=== PATIENT | male | born 1950 | race Caucasian/White ===

== ENCOUNTER 2025-07-22 15:16 | Inpatient (IN) | payer MEDICARE, SELFPAY ==
[2025-07-22] VITALS (14 sets, daily range): BP systolic 141–155; BP diastolic 92–96; PULSE 66–148; RESP 18–42; TEMP 36.7–38.8; O2SAT 92–96; BMI 26.5; BMI 26.4
--- NOTE | 2025-07-22 16:31 | CRLHL7_ITS ---
For Patients: As a result of the Cures Act, medical imaging exams and procedure reports are released immediately into your electronic medical record. You may view this report before your referring provider. If you have questions, please contact your health care provider. Indication: Cough and fever Comparison: None available. Technique: PA and lateral views of the chest Findings: There is hyperinflation and chronic interstitial changes with extensive basilar atelectasis and parenchymal scar. There is no pneumothorax or pleural effusion. The cardiomediastinal silhouette is within normal limits. The bony thorax is grossly intact. Impression: Moderate chronic interstitial change and hyperinflation with basilar atelectasis and parenchymal scarring. Dictated by Wallace Drummond MD @ 07/22/2025 6:46:59 PM (Electronically Signed)
[2025-07-22 16:54] LABS: Lactate* 1.0 mmol/L (0.5-1.9)
[2025-07-22 17:00] LABS: Hematocrit* 41.2 % (37.0-53.0); Hemoglobin* 13.8 gm/dL (13.5-17.5); Immature Granulocytes Abs Auto 0.03 K/uL (0.00-0.30); Immature Granulocytes Pct Auto 0.3 %; Mean Corpuscular HGB Conc 34 gm/dL (32-36); Mean Corpuscular Hemoglobin 28 pg (26-34); Mean Corpuscular Volume 83 fL (80-100); RDW Coefficient of Variation % 15.3 % (11.5-15.5); Red Blood Count* 4.94 m/uL (4.30-5.90); White Blood Count* 9.46 K/uL (4.50-11.00)
[2025-07-22 17:02] LABS: Lymphocytes Absolute Auto 1.90 K/uL (0.90-2.90); Slide Review Reflex No
[2025-07-22 17:14] LABS: Chloride* 97 mmol/L (96-114); Sodium* 131 mmol/L (135-149)
[2025-07-22 17:15] LABS: Potassium* 4.3 mmol/L (3.6-5.1)
[2025-07-22 17:17] LABS: Blood Urea Nitrogen* 25 mg/dL (7-30); Creatinine* 1.3 mg/dL (0.5-1.5); Est. Creatinine Clearance* 52.29; Estimated Glomerular Filt Rate 57 ml/min
[2025-07-22 17:18] LABS: Anion Gap 14 mEq/L (7-15); Calcium* 9.0 mg/dL (8.4-10.6); Carbon Dioxide* 20 mmol/L (20-32); Glucose* 135 mg/dL (60-115)
[2025-07-22 17:35] LABS: INR 1.22 (0.91-1.10); Procalcitonin* 0.13 ng/mL (<0.50); Prothrombin Time 16.3 Seconds
--- NOTE | 2025-07-22 18:16 | ED_ITS ---
HPI - Extremity Injury (Upper) General Date Seen: 07/22/25 Chief Complaint: Extremity Pain/Injury, Upper Stated Complaint: rt arm swelling Time Seen by Provider: 07/22/25 15:59 Source: patient, family, RN notes reviewed and old records reviewed Mode of arrival: ambulatory Limitations: no limitations History of Present Illness HPI narrative: Patient is a 74-year-old gentleman presents here with a right elbow swelling pain any fever, he was seen initially in the clinic and thought to maybe have a septic shoulder and elbow common sent over here. He has no history of previous instrumentation. No history of falls or injury does have a remote history of gout in the past. Related Data Home Medications ?Medication ?Instructions ?Recorded ?Confirmed apixaban 5 mg tablet (Eliquis) 5 mg PO BID 07/22/25 atorvastatin 40 mg tablet 40 mg PO DAILY 07/22/2504/08 lamotrigine 25 mg tablet 50 mg PO BID 07/22/25 metoprolol succinate 25 mg 12.5 mg PO BID 07/22/2504/08 tablet,extended release 24 hr pantoprazole 40 mg tablet,delayed 40 mg PO DAILY 07/2207/22/25 release Allergies Allergy/AdvReac Type Severity Reaction Status Date / Time lisinopril Allergy Severe Swelling Verified 07/22/25 11:19 of Lip/Tongue/Throat [facility] Medical History (Updated 07/22/25 @ 18:46 by Dax Mondragon MD) Right elbow pain ?M25.521 - Pain in right elbow (ICD-10) Right shoulder pain ?M25.511 - Pain in right shoulder (ICD-10) Exam Narrative: Exam Narrative: On examination he does have a swollen right elbow, I do not detect any warmth with the, his right shoulder has full range of motion in internal external rotation there is no palpable effusion, and he is able to lift it up, his neck is supple full range of motion, is noted to have a fever, I oropharynx is normal, chest is good air entry bilaterally there is occasional crackles on the right than the left. Heart sounds no clicks murmurs with that there is a gallop, noted approximately 120. Abdomen is soft there is no guarding no organomegaly bowel sounds normal. Moves all extremities independently well. Ultrasound was utilized I was able to find a pocket of fluid, I did draw off approximately 3-4 mL of yellowish bloody fluid. After anesthetizing and using sterile technique on the right elbow, unfortunately I was not enough to not enough there to get cell count and Gram stain, Orthopedics came in and got a 2nd tap to fulfill this. I reviewed the x-rays from previous, although his saw was a fusion no evidence of a fracture, his chest x-ray shows no acute findings, there is chronic changes. His EKG did did show atrial flutter with a variable AV block, he has no have atrial fibrillation/flutter, and anticoagulated, I did give him fluids Zosyn and vancomycin here, I spoke to Orthopedics who will admit him to the hospital, they will splint him, Hospital Medicine following while in the hospital, and they will wash remote tomorrow in his right elbow. Const: Vital Signs, click to edit/add: Vital Signs - 24 hr 07/22/25 15:27 Temperature 101.9 F H Pulse Rate [Pulse Oximeter] 148 H Respiratory Rate 22 Blood Pressure [Le ft Upper Arm] 152/96 H Pulse Oximetry 94 Oxygen Delivery Me thod Room Air Documenting provider has reviewed patient's vital signs: yes Course Vital Signs Vital signs: Initial Vital Signs Temperature 101.9 F H 07/22/25 15:27 Temperature Source Temporal Artery Scan 07/22/25 15:27 Pulse Rate 148 H 07/22/25 15:27 Respiratory Rate 22 07/22/25 15:27 Blood Pressure 152/96 H 07/22/25 15:27 Blood Pressure Mean 114 H 07/22/25 15:27 Blood Pressure Position Sitting 07/22/25 15:27 Pulse Oximetry 94 07/22/25 15:27 Oxygen Delivery Method Room Air 07/22/25 15:27 Vital Signs Temperature 101.9 F H 07/22/25 15:27 Pulse Rate 148 H 07/22/25 15:27 Respiratory Rate 22 07/22/25 15:27 Blood Pressure 152/96 H 07/22/25 15:27 Pulse Oximetry 94 07/22/25 15:27 Oxygen Delivery Method Room Air 07/22/25 15:27 Temperature 101.9 F H 07/22/25 15:27 Pulse Rate 148 H 07/22/25 15:27 Respiratory Rate 22 07/22/25 15:27 Blood Pressure 152/96 H 07/22/25 15:27 Pulse Oximetry 94 07/22/25 15:27 Oxygen Delivery Method Room Air 07/22/25 15:27 MDM - Extremity Injury (Upper) MDM Narrative Medical decision making narrative: Infected right elbow, history of atrial flutter, with the moderate RVR, suspect this will improve with fluids, antipyretics, and treatment of his primary problem which is is likely septic joint. I spoke to Adeola Fontana, she will be admitted to the hospital. Medical Records Attestation: I reviewed the patient's medical records. Lab Data Attestation: I reviewed the patient's lab results. Labs: Lab Results 07/22/25 07/22/25 Range/Units 16:42 17:10 WBC 9.46 (4.50-11.00) K/uL RBC 4.94 (4.30-5.90) m/uL Hgb 13.8 (13.5-17.5) gm/dL Hct 41.2 (37.0-53.0) % MCV 83 (80-100) fL MCH 28 (26-34) pg MCHC 34 (32-36) gm/dL RDW Coeff of Katie 15.3 (11.5-15.5) % Plt Count 217 (140-440) K/uL Neut % (Auto) 68.5 (42.0-72.0) % Lymph % (Auto) 19.7 L (20-44) % [place] % (Auto) 11.0 (0.0-11.0) % Eos % (Auto) 0.2 (0.0-7.0) % Baso % (Auto) 0.3 (0.0-3.0) % Neut # (Auto) 6.48 (1.7-7.0) K/uL Lymph # (Auto) 1.90 (0.90-2.90) K/uL [place] # (Auto) 1.00 H (0.00-0.90) K/UL Eos # (Auto) 0.02 (0.00-0.50) K/uL Baso # (Auto) 0.03 (0.00-0.30) K/uL Abs Immat Gran (auto) 0.03 (0.00-0.30) K/uL Imm/Tot Granulo (auto) 0.3 % INR 1.22 H (0.91-1.10) APTT 37 H (23-33) Seconds Sodium 131 L (135-149) mmol/L Potassium 4.3 (3.6-5.1) mmol/L Chloride 97 (96-114) mmol/L Carbon Dioxide 20 (20-32) mmol/L Anion Gap 14 (7-15) mEq/L BUN 25 (7-30) mg/dL Creatinine 1.3 (0.5-1.5) mg/dL Estimated Creat Clear 52.29 Estimated GFR 57 ml/min Glucose 135 H (60-115) mg/dL Lactate 1.0 (0.5-1.9) mmol/L Calcium 9.0 (8.4-10.6) mg/dL C-Reactive Protein 8.4 H (0.5-1.0) mg/dL Procalcitonin 0.13 (<0.50) ng/mL SARS-CoV-2 (PCR) Negative SARS-CoV-2 (Negative) Influenza Type A (PCR) Negative PCR FLU A (Negative) Influenza Type B (PCR) Negative PCR FLU B (Negative) RSV (PCR) Negative PCR RSV (Negative) Imaging Data Chest x-ray: Attestation: I have reviewed the pertinent imaging results. My impression: No acute findings, chronic findings throughout. ECG Data Attestation: I personally reviewed and interpreted this ECG as follows: ECG interpretation date: 07/22/25 Prior ECG tracings: not available for review Interpretation: EKG shows atrial flutter with the 2-1 block. Ventricular rate is 119, QRS 70 milliseconds, QT is 286 and QTC is 402 Discharge Plan Discharge Clinical Impression: Septic joint of right elbow, Fever, Atrial flutter with rapid ventricular response, Tobacco use disorder Patient Disposition: Admitted As Inpatient Condition: Improved Activity Level: Light activity
[2025-07-22 18:19] LABS: PCR FLU A Negative PCR FLU A (Negative); PCR FLU B Negative PCR FLU B (Negative); PCR RSV Negative PCR RSV (Negative); SARS PCR* Negative SARS-CoV-2 (Negative)
[2025-07-22 18:39] LABS: Mononuclear WBC Body Fluid* 9 %; Polynuclear WBC Body Fluid* 91 %; RBC, Body Fluid* 59000 Cells/uL
[2025-07-22 18:49] LABS: BF Total Volume* 2
[2025-07-22 18:50] LABS: BF Clarity* Cloudy
[2025-07-22] MEDS: PIPERACILLIN/TAZOBACTAM 3.375 GM in 0.9 % SODIUM CHLORIDE Mini-bag 100 ML IVPB (18:58)
[2025-07-22] MEDS: ACETAMINOPHEN 500 MG TABLET 1000 MG PO (18:58)
--- NOTE | 2025-07-22 19:18 | PM.ORCN ---
History of Present Illness HPI Time Seen by Provider: 19:18 Date Seen: 07/22/25 Consult date: 07/22/25 Requesting physician: Dax Mondragon Chief complaint: rt arm swelling Narrative: Rosendo is a very pleasant 74-year-old young man, here in the emergency room today with left elbow pain and fever. He has a remote history of gout in his foot. Pain initially started in the shoulder and later in the elbow. He states it feels like gout. He takes apixaban. He has atrial flutter. Review of Systems Narrative: Patient denies nausea, vomiting, chest pain, shortness of breath. He has fever, chills. [facility] Medical History Right elbow pain ?M25.521 - Pain in right elbow (ICD-10) Right shoulder pain ?M25.511 - Pain in right shoulder (ICD-10) Meds Home Medications and Allergies Home Medications ?Medication ?Instructions ?Recorded ?Confirmed ?Type apixaban 5 mg tablet (Eliquis) 5 mg PO BID 07/22/25 07/22/25 History atorvastatin 40 mg tablet 40 mg PO DAILY 07/22/25 07/22/25 History lamotrigine 25 mg tablet 50 mg PO BID 07/22/25 07/22/25 History metoprolol succinate 25 mg 12.5 mg PO BID 07/22/25 07/22/25 History tablet,extended release 24 hr pantoprazole 40 mg tablet,delayed 40 mg PO DAILY 07/22/25 07/22/25 History release Allergies Allergy/AdvReac Type Severity Reaction Status Date / Time lisinopril Allergy Severe Swelling Verified 07/22/25 11:19 of Lip/Tongue/Throat Ortho Exam Narrative Exam Narrative: Alert and oriented x3. Patient is in no acute distress. Converses without labored breathing. Hearing is grossly intact. Examined supine on ER bed. Examination of the right elbow shows no erythema or warmth. Effusion is palpable. Range of motion of the elbow causes significant pain passively and actively. He is able to range his fingers and wrist. Capillary refill less than 2 seconds. Sensation is intact in the right upper extremity. Forward flexion of the shoulder is not painful. Const Vital Signs, click to edit/add: Vital Signs - 24 hr 07/22/25 15:27 07/22/25 16:30 07/22/25 17:45 Temperature 101.9 F H Pulse Rate 120 H Pulse Rate [Pulse Oximeter] 148 H Respiratory Rate 22 42 H Blood Pressure Blood Pressure [Left Upper Arm] 152/96 H Pulse Oximetry 94 96 94 Oxygen Delivery Method Room Air 07/22/25 18:07 07/22/25 18:15 07/22/25 18:30 Temperature Pulse Rate 124 H 127 H 133 H Pulse Rate [Pulse Oximeter] Respiratory Rate 27 H 25 H Blood Pressure Blood Pressure [Left Upper Arm] Pulse Oximetry 93 93 92 Oxygen Delivery Method 07/22/25 18:43 07/22/25 18:45 07/22/25 19:00 Temperature Pulse Rate 127 H 118 H 118 H Pulse Rate [Pulse Oximeter] Respiratory Rate 19 24 22 Blood Pressure 141/92 H Blood Pressure [Left Upper Arm] Pulse Oximetry 93 93 95 Oxygen Delivery Method Room Air Room Air Documenting provider has reviewed patient's vital signs: yes Results Labs Labs: Laboratory Results - last 48 hr 07/22/25 07/22/25 07/22/25 16:42 17:10 17:32 WBC 9.46 RBC 4.94 Hgb 13.8 Hct 41.2 MCV 83 MCH 28 MCHC 34 RDW Coeff of Katie 15.3 Plt Count 217 Neut % (Auto) 68.5 Lymph % (Auto) 19.[address] [place] % (Auto) 11.0 Eos % (Auto) 0.2 Baso % (Auto) 0.3 Neut # (Auto) 6.48 Lymph # (Auto) 1.90 [place] # (Auto) 1.00 H Eos # (Auto) 0.02 Baso # (Auto) 0.03 Abs Immat Gran (auto) 0.03 Imm/Tot Granulo (auto) 0.3 INR 1.22 H APTT 37 H Sodium 131 L Potassium 4.3 Chloride 97 Carbon Dioxide 20 Anion Gap 14 BUN 25 Creatinine 1.3 Estimated Creat Clear 52.29 Estimated GFR 57 Glucose 135 H Lactate 1.0 Calcium 9.0 C-Reactive Protein 8.4 H Procalcitonin 0.13 Fluid Volume 2 Fluid Color Blood Tinged A Fluid Appearance Cloudy A Fluid WBC 428797 Fluid RBC 77997 Fluid Polynuclear WBCs 91 Fluid Mononuclear WBCs 9 SARS-CoV-2 (PCR) Negative SARS-CoV-2 Influenza Type A (PCR) Negative PCR FLU A Influenza Type B (PCR) Negative PCR FLU B RSV (PCR) Negative PCR RSV Diagnostic results Additional Comments: X-rays taken today of the right elbow interpreted by myself show no fractures or dislocations. Degenerative changes noted. Radiologist review has not yet been performed. X-rays taken today of the right shoulder, three views show moderate to severe right shoulder osteoarthritis with calcification seen within the rotator cuff interval. Assessment and Plan Assessment and plan (1) Right elbow pain: Status: Acute Plan After verbal consent and review of risks and benefits, the right elbow joint is prepped and aspirated by Dr. Mondragon and myself. Approximately 5 mL of cloudy blood-tinged fluid is aspirated. A Band-Aid is placed. Fluid was sent to the lab for crystals, culture, Gram stain, cell count also had blood cultures taken. The operating room will be busy for several hours this evening, therefore tomorrow plan on washing out the elbow with Dr. Ha. Dr. Mustafa has spoken with Dr. Ha. Patient will remain NPO. Right arm is placed into a posterior splint for comfort. He tolerated this well. He can use his hand and fingers with in the splint. Semaj is in agreement the plan. All questions were answered. Note, dictation performed with voice recognition, and as a result, wrong word or sound like substitutions may have occurred. There may be areas in the script that have gone undetected. Please consider this when interpreting information found in the chart.
--- NOTE | 2025-07-22 19:54 | PM.IMHP1 ---
Assessment and Plan Assessment and plan (1) Sepsis: Problem comment: -meet sepsis criteria fever 101.9?, HR > 120, respiratory rate > 20, suspect septic joint -lactate 1.0, procal 0.13, CRP 8.4, no leukocytosis, added VBG pH 7.467, pCO2 31, PO2 59, HC03 22 -received 1 L NS in ED, 2nd bolus on arrival to floor, will re-evaluate for additional 500 mL bolus followed by maintenance fluids (goal 2580mL for 86 kg man) -received Zosyn and vancomycin in ED. Continue with vancomycin and switch to cefazolin 2 g q.8 -fever management, tachycardia improving - repeat EKG aflutter with av block, vent rate 71 -BC x2, aspirate cultures pending Status: Acute (2) Septic joint of right elbow: Problem comment: -right elbow x-ray shows Mildly limited evaluation. Within these limitations, no definite acute fracture or dislocation of the right elbow. There is soft tissue swelling posterior to the distal aspect of the right humerus, as well as posterior to the olecranon. There may be an elbow joint effusion versus overlying skin folds -ortho assessed patient in ED, aspiration obtained - cloudy blood-tinged fluid, cultures pending. Plan for OR washout 07/[address] Ha -management as above -NPO at midnight, IVF -last dose apixaban 07/22 am - HOLD. SCDs for VTE PPX Status: Acute (3) Hyponatremia: Problem comment: -sodium 131, previous 136 -receiving NS per sepsis protocol, monitor Status: Acute (4) Atrial flutter with rapid ventricular response: Problem comment: -history of atrial flutter on metoprolol and apixiban - took both this am 07/22 -1st EKG showing atrial flutter with variable AV block, ventricular rate 119 -heart rate improving with sepsis IVF -repeat EKG shows aflutter, rate 71, give evening dose home metoprolol Status: Acute (5) COPD (chronic obstructive pulmonary disease): Problem comment: -active tobacco use, weekly, not daily -perioperative pulmonary hygiene encouraged, incentive spirometry Status: Acute (6) GERD (gastroesophageal reflux disease): Problem comment: -pantoprazole 40 mg daily Status: Acute (7) Bipolar 1 disorder: Problem comment: -per EMR, stable Status: Acute (8) Essential (primary) hypertension: Problem comment: -continue metoprolol 12.5 mg b.i.d. Status: Acute (9) Stage 3 chronic kidney disease: Problem comment: -CKD stage IIIA -creatinine 1.3, stable, previous 1.3, Status: Acute (10) Hyperlipidemia: Problem comment: -continue atorvastatin 40 mg Status: Acute (11) Right shoulder pain: Problem comment: -onset 1 week ago, decreased range of motion. No injury/trauma. Shoulder x-ray shows moderate-severe right shoulder OA -pain management/symptomatic cares -outpatient follow-up Status: Acute Plan To OR 07/23 for washout right elbow with Dr. Ha Total Time Spent Total Time Spent: Today I spent 75 minutes seeing the patient, reviewing Expanse and EPIC notes/diagnostics, discussing the care plan with our care time that includes social work, PT/OT, pharmacy, RT, residential and documenting my impressions and plan in the medical record. Hospitalist- H&P: HPI History of Present Illness Date Seen: 07/22/25 Chief complaint: rt arm swelling Narrative: Rosendo Shafer is a 74 year old male past medical history significant for atrial flutter on beta-lisa and chronic anticoagulation, hypertension, hyperlipidemia, bipolar 1 disorder, COPD, active tobacco use, GERD is admitted to the medical floor from the ED for further management septic joint. Patient is seen sitting up in bed. Reports initially, onset right shoulder pain approximately 1 week ago. He tells me it froze up secondary to the pain. Denies any trauma or injury nor any overuse type injury prior to onset. No falls. Three days ago right elbow began hurting with inflammation and swelling. Again no trauma or injury known. [place] feverish today. Mild headache. No dizziness. Denies any recent chest pain or shortness of breath. Denies abdominal pain, nausea, vomiting, diarrhea. Last normal BM was yesterday. Denies any UTI symptoms. Orthopedic surgery team saw patient in ED, aspirating cloudy blood-tinged fluid. Plan for OR for washout with Dr. Ha on 07/23/2025. Patient reports living in an , traveling across the [place] for the past 6 years. Recently moved into an apartment with his in [place]. PCP is [facility] in [place]- sees her every 6 months. Continues to smoke on a weekly, not daily basis. No alcohol use. Denies history of anesthesia complications with previous surgeries. Last was November 2023. No known bleeding disorders. No history of strokes or heart attacks. CXR shows moderate chronic interstitial change and hyperinflation with basilar atelectasis and parenchymal scarring. Repeat labs in a.m.. Sodium 131, has received NS IVF so expect this to be same or better. Okay for planned procedure. Review of Systems Narrative: REVIEW OF SYSTEMS: Complete review of systems performed and negative unless otherwise stated in HPI or below. Medical Decision Making Medical Decision Making Code Status: DNI only [facility] Medical History Hyperlipidemia ?E78.5 - Hyperlipidemia, unspecified (ICD-10) Right elbow pain ?M25.521 - Pain in right elbow (ICD-10) Right shoulder pain ?M25.511 - Pain in right shoulder (ICD-10) Meds Home Medications and Allergies Home Medications ?Medication ?Instructions ?Recorded ?Confirmed ?Type apixaban 5 mg tablet (Eliquis) 5 mg PO BID 07/22/25 07/22/25 History atorvastatin 40 mg tablet 40 mg PO DAILY 07/22/25 07/22/25 History lamotrigine 25 mg tablet 50 mg PO BID 07/22/25 07/22/25 History metoprolol succinate 25 mg 12.5 mg PO BID 07/22/25 07/22/25 History tablet,extended release 24 hr pantoprazole 40 mg tablet,delayed 40 mg PO DAILY 07/22/25 07/22/25 History release Allergies Allergy/AdvReac Type Severity Reaction Status Date / Time lisinopril Allergy Severe Swelling Verified 07/22/25 11:19 of Lip/Tongue/Throat Exam Narrative: Exam Narrative: PHYSICAL EXAM General: Pleasant, conversant, NAD HEENT: Normocephalic, atraumatic, sclera white, EOMI, oral mucosa moist Cardiovascular: IRRR, trace pitting edema. Pulmonary: CTA bilaterally without rhonchi, rales, expiratory wheezes. No dyspnea on room air Abdominal: Soft, nondistended, NTTP Neurological: Alert, answering questions appropriately, cranial nerves intact, no focal findings Extremities: RUE with splint and wrap in place. No erythema at hand or shoulder joint. Neurovascularly intact Skin: Warm, dry. Const: Vital Signs, click to edit/add: Vital Signs - 24 hr 07/22/25 15:27 07/22/25 16:30 07/22/25 17:45 Temperature 101.9 F H Pulse Rate 120 H Pulse Rate [Pulse Oximeter] 148 H Respiratory Rate 22 42 H Blood Pressure Blood Pressure [Le ft Upper Arm] 152/96 H Pulse Oximetry 94 96 94 Oxygen Delivery Me thod Room Air 07/22/25 18:07 07/22/25 18:15 07/22/25 18:30 Temperature Pulse Rate 124 H 127 H 133 H Pulse Rate [Pulse Oximeter] Respiratory Rate 27 H 25 H Blood Pressure Blood Pressure [Le ft Upper Arm] Pulse Oximetry 93 93 92 Oxygen Delivery Me thod 07/22/25 18:43 07/22/25 18:45 07/22/25 19:00 Temperature Pulse Rate 127 H 118 H 118 H Pulse Rate [Pulse Oximeter] Respiratory Rate 19 24 22 Blood Pressure 141/92 H Blood Pressure [Le ft Upper Arm] Pulse Oximetry 93 93 95 Oxygen Delivery Me thod Room Air Room Air Hospitalist - H&P: Result Labs Labs: Short CBC 07/22/25 Range/Units 16:42 WBC 9.46 (4.50-11.00) K/uL Hgb 13.8 (13.5-17.5) gm/dL Hct 41.2 (37.0-53.0) % Plt Count 217 (140-440) K/uL BMP 07/22/25 16:42 Sodium 131 L Potassium 4.3 Chloride 97 Carbon Dioxide 20 BUN 25 Creatinine 1.3 Glucose 135 H Calcium 9.0 ECG Attestation: I personally reviewed and interpreted this ECG as follows: Interpretation: Repeat EKG atrial flutter with AV block, ventricular rate 71 Imaging Chest x-ray: Attestation: I have reviewed the pertinent imaging results. Radiologist's impression: There is hyperinflation and chronic interstitial changes with extensive basilar atelectasis and parenchymal scar. There is no pneumothorax or pleural effusion. The cardiomediastinal silhouette is within normal limits. The bony thorax is grossly intact. Impression: Moderate chronic interstitial change and hyperinflation with basilar atelectasis and parenchymal scarring. Right elbow x-ray: Attestation: I have reviewed the pertinent imaging results. Radiologist's impression: Osseous structures: The patient was suboptimally positioned, mildly limiting evaluation. Within these limitations, there is no acute fracture or dislocation of the right elbow. There is joint space loss within the right elbow. Soft tissues: Evaluation of the soft tissues is limited secondary to overlying clothing. Within these limitations, there may be an elbow joint effusion versus overlying skin folds. There is also soft tissue swelling posterior to the distal aspect of the humerus and posterior to the olecranon. IMPRESSION: Mildly limited evaluation. Within these limitations, no definite acute fracture or dislocation of the right elbow. There is soft tissue swelling posterior to the distal aspect of the right humerus, as well as posterior to the olecranon. There may be an elbow joint effusion versus overlying skin folds. Further evaluation is otherwise limited secondary to overlying patient clothing. If further evaluation is required, dedicated cross-sectional imaging with CT or MRI is recommended. Right shoulder x-ray: Attestation: I have reviewed the pertinent imaging results. Radiologist's impression: Findings: Normal alignment. No fracture is seen. Moderate to severe glenohumeral and acromioclavicular joint osteoarthritis. Calcification is seen within the rotator cuff interval. Impression: Moderate-severe right shoulder osteoarthritis.
[2025-07-22 20:20] LABS: HCO3 VBG 22 mmol/L (21-28); PCO2 VBG 31 mmHG (40-50); PO2 VBG 59.9 mmHG (25-47); pH VBG 7.467 (7.32-7.43)
[2025-07-22 20:27] LABS: Albumin* 4.2 g/dL (3.3-5.0)
[2025-07-22 20:30] LABS: Alanine Aminotransferase* 15 U/L (4-50); Alkaline Phosphatase* 72 U/L (40-150); Aspartate Amino Transferase* 21 U/L (12-35); Bilirubin Direct* 0.4 mg/dL (0.0-0.5); Bilirubin Total* 1.2 mg/dL (0.1-1.5); Total Protein* 7.8 g/dL (6.0-8.3)
[2025-07-22] MEDS: VANCOMYCIN 1.5 GM/300 ML 1.5 GM/300 ML PIGGYBACK IVPB (22:01)
[2025-07-22] MEDS: METOPROLOL SUCCINATE (XL) 25 MG TAB 12.5 MG PO (22:03)
[2025-07-22] MEDS: SODIUM CHLORIDE 0.9 % (FLUSH) 10 ML SYRINGE 5 ML IVF (22:05)
[2025-07-22] MEDS: CEFAZOLIN 2 GM in 0.9 % SODIUM CHLORIDE Mini-bag 100 ML IVPB (23:31)
[2025-07-23] VITALS (29 sets, daily range): BP systolic 102–196; BP diastolic 66–109; PULSE 63–73; RESP 12–21; TEMP 36.2–37.1; O2SAT 90–98
[2025-07-23 06:24] LABS: HCO3 VBG 21 mmol/L (21-28); PCO2 VBG 31 mmHG (40-50); PO2 VBG 67.9 mmHG (25-47); pH VBG 7.435 (7.32-7.43)
[2025-07-23 06:30] LABS: Hematocrit* 36.6 % (37.0-53.0); Hemoglobin* 12.0 gm/dL (13.5-17.5); Mean Corpuscular HGB Conc 33 gm/dL (32-36); Mean Corpuscular Hemoglobin 28 pg (26-34); Mean Corpuscular Volume 85 fL (80-100); Red Blood Count* 4.32 m/uL (4.30-5.90); White Blood Count* 6.46 K/uL (4.50-11.00)
[2025-07-23 06:35] LABS: Slide Review Reflex No
[2025-07-23 06:43] LABS: Chloride* 104 mmol/L (96-114); Potassium* 4.1 mmol/L (3.6-5.1); Sodium* 133 mmol/L (135-149)
[2025-07-23 06:46] LABS: Anion Gap 9 mEq/L (7-15); Blood Urea Nitrogen* 22 mg/dL (7-30); Calcium* 7.9 mg/dL (8.4-10.6); Carbon Dioxide* 20 mmol/L (20-32); Creatinine* 1.0 mg/dL (0.5-1.5); Est. Creatinine Clearance* 67.98; Estimated Glomerular Filt Rate 78 ml/min; Glucose* 106 mg/dL (60-115)
[2025-07-23 06:52] LABS: INR 1.31 (0.91-1.10); Prothrombin Time 17.2 Seconds
--- NOTE | 2025-07-23 06:57 | PC.NURSE ---
Pt alert and oriented x3. Afebrile. Pt reports 1/10 pain in right arm, pain medications offered pt refused. Pt's cast is dry and intact pt is able to move fingers, cap refill <3. Pt denies any numbness and tingling. Pt is up SBA with IV pole, voiding, and tolerating and NPO diet since 0000.
[2025-07-23] MEDS: LACTATED RINGERS 1000 ML 1,000 ML 125 ML IV (08:18)
--- NOTE | 2025-07-23 08:33 | PM.ORPN ---
Subjective Subjective Date Seen: 07/23/25 Principal diagnosis: Septic right elbow Interval history: Patient admitted for treatment of suspected septic right elbow. He presented to the emergency department last night with fevers and complaints of right elbow pain. He states that pain in his elbow have been progressively worsening over the past few days and he started developing fevers yesterday. Elbow joint was aspirated in the emergency department. Aspiration of synovial fluid revealed elevated white blood cell count (>105,000) concerning for infection. After the aspiration, patient was started on IV antibiotics. Today, he states that elbow pain is improving but he still has pain with attempted range of motion. His fevers have resolved. Ortho Exam Narrative Exam Narrative: General: Alert oriented no apparent distress. Musculoskeletal: Nation of right upper extremity revealed no significant soft tissue swelling or obvious erythema. The elbow was diffusely tender to palpation and elbow range of motion was significantly limited by pain. Radial, ulnar, median sensation intact to light touch. Thumb extension, thumb opposition, thumb IP flexion, and intrinsics are intact. 2+ radial pulse. Const Vital Signs, click to edit/add: Vital Signs - 24 hr 07/22/25 15:27 07/22/25 16:30 07/22/25 17:45 Temperature 101.9 F H Pulse Rate 120 H Pulse Rate [Left Radial] Pulse Rate [Pulse Oximeter] 148 H Respiratory Rate 22 42 H Blood Pressure Blood Pressure [Left Arm] Blood Pressure [Left Upper Arm] 152/96 H Pulse Oximetry 94 96 94 Oxygen Delivery Method Room Air 07/22/25 18:07 07/22/25 18:15 07/22/25 18:30 Temperature Pulse Rate 124 H 127 H 133 H Pulse Rate [Left Radial] Pulse Rate [Pulse Oximeter] Respiratory Rate 27 H 25 H Blood Pressure Blood Pressure [Left Arm] Blood Pressure [Left Upper Arm] Pulse Oximetry 93 93 92 Oxygen Delivery Method 07/22/25 18:43 07/22/25 18:45 07/22/25 19:00 Temperature Pulse Rate 127 H 118 H 118 H Pulse Rate [Left Radial] Pulse Rate [Pulse Oximeter] Respiratory Rate 19 24 22 Blood Pressure 141/92 H Blood Pressure [Left Arm] Blood Pressure [Left Upper Arm] Pulse Oximetry 93 93 95 Oxygen Delivery Method Room Air Room Air 07/22/25 19:07 07/22/25 20:00 07/22/25 21:32 Temperature 99.1 F 99.1 F Pulse Rate 75 Pulse Rate [Left Radial] 109 H Pulse Rate [Pulse Oximeter] Respiratory Rate 18 Blood Pressure Blood Pressure [Left Arm] 143/92 H Blood Pressure [Left Upper Arm] Pulse Oximetry 94 Oxygen Delivery Method Room Air 07/22/25 22:07 07/22/25 22:07 07/22/25 23:00 Temperature 98.1 F Pulse Rate 75 Pulse Rate [Left Radial] 66 66 Pulse Rate [Pulse Oximeter] Respiratory Rate 20 20 Blood Pressure Blood Pressure [Left Arm] 155/94 H Blood Pressure [Left Upper Arm] Pulse Oximetry 96 Oxygen Delivery Method Room Air 07/23/25 03:00 07/23/25 07:29 Temperature 98.8 F 97.8 F Pulse Rate Pulse Rate [Left Radial] 71 73 Pulse Rate [Pulse Oximeter] Respiratory Rate 18 18 Blood Pressure Blood Pressure [Left Arm] 163/88 H 150/85 H Blood Pressure [Left Upper Arm] Pulse Oximetry 94 93 Oxygen Delivery Method Room Air Room Air Assessment and Plan Assessment and plan (1) Septic joint of right elbow: Problem details: -right elbow x-ray shows Mildly limited evaluation. Within these limitations, no definite acute fracture or dislocation of the right elbow. There is soft tissue swelling posterior to the distal aspect of the right humerus, as well as posterior to the olecranon. There may be an elbow joint effusion versus overlying skin folds -ortho assessed patient in ED, aspiration obtained - cloudy blood-tinged fluid, cultures pending. Plan for OR washout 07/[address] Ha -management as above -NPO at midnight, IVF -last dose apixaban 128 am - HOLD. SCDs for VTE PPX Status: Acute Plan Right elbow exam and joint aspiration consistent with septic elbow joint. Recommendation made for continued IV antibiotics as well as surgical intervention consisting of right elbow irrigation and debridement. Risks of surgery to include but not limited to need for further surgery, neurovascular injury, wound healing complications, elbow instability, elbow stiffness, attack, stroke, even were discussed with patient all questions were answered and informed consent was obtained. Surgery is planned for this morning. Patient has been NPO in anticipation for surgery.
--- NOTE | 2025-07-23 09:26 | P.ORPRC_ITS ---
Procedure Note Date of procedure: 07/23/25 Procedure: PREOPERATIVE DIAGNOSIS: 1. Right elbow septic arthritis POSTOPERATIVE DIAGNOSIS: 1. Right elbow septic arthritis PROCEDURE: 1. Right elbow irrigation and debridement SURGEON: Panda Ha MD. INDEPENDENT CONTRACTOR: Faviola Hahn P.A.-C. - Of note, an assistant case manager was critical for this case to aid in patient positioning, tissue retraction, limb manipulation/positioning, and closure. ANESTHESIA: General anesthetic TOURNIQUET: 33 minutes at 250 mmHg ESTIMATED BLOOD LOSS: 2 mL COMPLICATIONS: None SPECIMENS: Right elbow synovial fluid swab was sent for Gram stain, anaerobic/aerobic cultures. INDICATIONS: The patient is a pleasant 74-year-old male who was experiencing fevers and increasing elbow pain. Upon evaluation in the emergency department, joint was aspirated and synovial cell count revealed elevated white blood cell count of greater than 105,000. Examination and laboratory findings were concerning for septic right elbow joint. After elbow aspiration, patient was started on IV antibiotics. Recommendations subsequent made for surgical intervention consisting of open irrigation and debridement. Prior to surgery, risks and benefits were discussed with patient, all questions were answered, informed consent was obtained. FINDINGS: Cloudy appearing joint fluid, which was swabbed and sent for Gram stain, anaerobic/aerobic cultures. DESCRIPTION OF PROCEDURE: Following a thorough discussion of risks, benefits, and alternatives, informed consent was obtained and the operative site was marked. The patient was brought to the operating room and placed supine on the operating table. Induction of anesthesia was undertaken. 2 g IV Ancef were administered within 1 hr of incision preoperatively. Tourniquet placed on the right upper arm. The right upper extremities prepped and draped usual sterile fashion. Surgical time-out was performed confirming patient identity, surgical site, surgical procedure. Right upper extremities elevated and exsanguinated Esmarch, tourniquet was inflated to 250 mmHg. An oblique incision was made over the lateral elbow extending from the lateral condyle distally and dorsally proximally force to 5 cm. Incision was carried through subcutaneous tissues. The fascia over the extensor carpi ulnaris and anconeus was identified. Fascia was then incised longitudinally in line with the skin. The elbow joint capsule was identifies and was incised anterior to the lateral ulnar collateral ligament and proximal to the annular ligament. Upon incising the joint capsule, cloudy synovial fluid was identified. This fluid was swabbed and sent for Gram stain, anaerobic /aerobic cultures. The joint was then irrigated with copious amounts of normal saline. Joint capsule then reapproximated with 3-0 Monocryl stitch. The deep fascial layer was partially closed with a running 3-0 Monocryl stitch. The tourniquet was released. Tourniquet time was 33 minutes. Wound was irrigated normal saline and hemostasis was achieved with electrocautery. Skin incision was closed with 3-0 nylon sutures. Sterile dressings were applied and the patient was awoken from anesthesia and transferred the PACU in stable condition. PLAN: 1. [Weightbearing status] 2. [Antibiotics] 3. [Ice/Elevation] 4. [PT/OT consults for ambulation assistance/mobility education]. 5. [DVT prophylaxis with at SCDs, Xavier Hose, and aspirin].
--- NOTE | 2025-07-23 09:50 | P.ANES_ITS ---
Anesthesia Charges Start Date/Time Anesthesia Start Date: 07/23/25 Anesthesia Start Time: 08:18 Stop Date/Time Anesthesia Stop Date: 07/23/25 Anesthesia Stop Time: 09:48 Summary Emergency: MDA Extremes of Age - Over 70 or under 1: MDA Coding CPT Codes CPT Codes: ANESTH ELBOW AREA SURGERY - 85014 ([id number]) QK - PROCESS CHEMIST 2-4 CNCRNT ANES PROC, QX - IC DESIGN MANAGER SVC W/ MD MED DIRECTION, P3 - PATIENT W/SEVERE SYS DISEASE Additional Codes: Summary - Emergency: MDA ([id number]) Summary - Extremes of Age - Over 70 or under 1: MDA ([id number])
--- NOTE | 2025-07-23 09:50 | W.ANESCHARGE ---
Anesthesia Charges Start Date/Time Anesthesia Start Date: 07/23/25 Anesthesia Start Time: 08:18 Stop Date/Time Anesthesia Stop Date: 07/23/25 Anesthesia Stop Time: 09:48 Summary Emergency: MDA Extremes of Age - Over 70 or under 1: MDA Coding CPT Codes CPT Codes: ANESTH ELBOW AREA SURGERY - 95112 ([id number]) QK - BLOCK MASON 2-4 CNCRNT ANES PROC, QX - CUSTOMER SERVICE TRAINER SVC W/ MD MED DIRECTION, P3 - PATIENT W/SEVERE SYS DISEASE Additional Codes: Summary - Emergency: MDA ([id number]) Summary - Extremes of Age - Over 70 or under 1: MDA ([id number])
--- NOTE | 2025-07-23 09:56 | P.ANES_ITS ---
Anesthesia Charges Start Date/Time Anesthesia Start Date: 07/23/25 Anesthesia Start Time: 08:18 Stop Date/Time Anesthesia Stop Date: 07/23/25 Anesthesia Stop Time: 09:48 Summary Emergency: PRINTED CIRCUIT BOARDS ROUTER Extremes of Age - Over 70 or under 1: PRINTED CIRCUIT BOARDS ROUTER Coding CPT Codes CPT Codes: ANESTH ELBOW AREA SURGERY - 73703 ([id number]) P3 - PATIENT W/SEVERE SYS DISEASE, QK - BATCH TRUCKER 2-4 CNCRNT ANES PROC Additional Codes: Summary - Emergency: PRINTED CIRCUIT BOARDS ROUTER ([id number]) Summary - Extremes of Age - Over 70 or under 1: PRINTED CIRCUIT BOARDS ROUTER ([id number])
--- NOTE | 2025-07-23 09:56 | W.ANESCHARGE ---
Anesthesia Charges Start Date/Time Anesthesia Start Date: 07/23/25 Anesthesia Start Time: 08:18 Stop Date/Time Anesthesia Stop Date: 07/23/25 Anesthesia Stop Time: 09:48 Summary Emergency: ENERGY CONSERVATION REPRESENTATIVE Extremes of Age - Over 70 or under 1: ENERGY CONSERVATION REPRESENTATIVE Coding CPT Codes CPT Codes: ANESTH ELBOW AREA SURGERY - 48159 ([id number]) P3 - PATIENT W/SEVERE SYS DISEASE, QK - GENETICIST 2-4 CNCRNT ANES PROC Additional Codes: Summary - Emergency: ENERGY CONSERVATION REPRESENTATIVE ([id number]) Summary - Extremes of Age - Over 70 or under 1: ENERGY CONSERVATION REPRESENTATIVE ([id number])
--- NOTE | 2025-07-23 10:46 | SUR.PHASEI ---
patient met discharge criteria per anesthesia
[2025-07-23] MEDS: MORPHINE 4 MG/ML INJ IVP (11:24)
[2025-07-23] MEDS: NICOTINE 21 MG PATCH 1 PATCH TRANSDERMA (11:25)
[2025-07-23] MEDS: VANCOMYCIN 1 GM/200 ML 1 GM/200 ML PIGGYBACK IVPB ×2 (11:29→23:40)
[2025-07-23] MEDS: OMEPRAZOLE 20 MG CAPSULE DR 40 MG PO (11:30)
[2025-07-23] MEDS: METOPROLOL SUCCINATE (XL) 25 MG TAB 12.5 MG PO ×2 (11:30→20:54)
[2025-07-23] MEDS: ATORVASTATIN CALCIUM 40 MG TABLET PO (12:18)
[2025-07-23] MEDS: SENNOSIDES/DOCUSATE TABLET 1 TAB PO (12:18)
[2025-07-23] MEDS: ACETAMINOPHEN 325 MG TABLET 1000 MG PO ×2 (13:53→23:46)
--- NOTE | 2025-07-23 14:05 | P.IMPN_ITS ---
Assessment and Plan Assessment and plan (1) Sepsis: Problem comment: -meet sepsis criteria fever 101.9?, HR > 120, respiratory rate > 20, suspect septic joint -lactate 1.0, procal 0.13, CRP 8.4, no leukocytosis, added VBG pH 7.467, pCO2 31, PO2 59, HC03 22 -received 1 L NS in ED, 2nd bolus on arrival to floor, will re-evaluate for additional 500 mL bolus followed by maintenance fluids (goal 2580mL for 86 kg man) -received Zosyn and vancomycin in ED. Continue with vancomycin and switch to ce fazolin 2 g q.8 -fever management, tachycardia improving - repeat EKG aflutter with av block, vent rate 71 -BC x2, aspirate cultures pending - 07/23 Sepsis RESOLVED Status: Acute (2) Septic joint of right elbow: Problem comment: -right elbow x-ray shows Mildly limited evaluation. Within these limitations, no definite acute fracture or dislocation of the right elbow. There is soft tissue swelling posterior to the distal aspect of the right humerus, as well as posterior to the olecranon. There may be an elbow joint effusion versus overlying skin folds -ortho assessed patient in ED, aspiration obtained - cloudy blood-tinged fluid, cultures pending. Plan for OR washout 07/[address] Ha -management as above -NPO at midnight, IVF -last dose apixaban 07/22 am - HOLD. SCDs for VTE PPX -07/23 BCx2 NGTD. Synovial fluid gram stain neg, cultures pending. MRSA screen pending. Continue cefazolin and vancomycin pending cultures. Status: Acute (3) Hyponatremia: Problem comment: -sodium 131, previous 136 -receiving NS per sepsis protocol, monitor - 07/23 sodium 133, improving. Asymptomatic, continue to monitor Status: Acute (4) Atrial flutter with rapid ventricular response: Problem comment: -history of atrial flutter on metoprolol and apixiban - took both this am 07/22 -1st EKG showing atrial flutter with variable AV block, ventricular rate 119 -heart rate improving with sepsis IVF -repeat EKG shows aflutter, rate 71, give evening dose home metoprolol - 07/23 Rate controlled today. Continue metoprolol. Discussed with ortho - okay to restart apixaban in am. Status: Acute (5) COPD (chronic obstructive pulmonary disease): Problem comment: -active tobacco use, weekly, not daily -perioperative pulmonary hygiene encouraged, incentive spirometry Status: Chronic (6) GERD (gastroesophageal reflux disease): Problem comment: -pantoprazole 40 mg daily Status: Chronic (7) Bipolar 1 disorder: Problem comment: -per EMR, stable, continue Lamictal and olanzapine Status: Chronic (8) Essential (primary) hypertension: Problem comment: -continue metoprolol 12.5 mg b.i.d. Status: Chronic (9) Stage 3 chronic kidney disease: Problem comment: -CKD stage IIIA -creatinine 1, stable, previous 1.3 Status: Chronic (10) Hyperlipidemia: Problem comment: -continue atorvastatin 40 mg Status: Chronic (11) Right shoulder pain: Problem comment: -onset 1 week ago, decreased range of motion. History of freezing up as well. No injury/trauma. Exam is reassuring. Shoulder x-ray shows moderate-severe right shoulder OA -pain management/symptomatic cares -outpatient follow-up Status: Acute Total Time Spent Total Time Spent: Today I spent 50 minutes seeing the patient on 2 separate occasions, discussing with the patient and his , reviewing Expanse and EPIC notes/diagnostics, discussing the care plan with our care time that includes social work, PT/OT, pharmacy, RT, fpc and documenting my impressions and plan in the medical record. Subjective Time Seen by Provider: 07:35 Date Seen: 07/23/25 Interval history: I saw Semaj this morning before surgery and then went back after surgery around 1:20 p.m. and his was also there. Semaj tells me that his shoulder hurts and that no one's looked into that. Tells me his pain was actually the worst his shoulder few days ago and is now getting better and is even better now that he had surgery. I note he had a shoulder XR on admission that shows moderate to severe osteoarthritis. He and his asked me when he could go home today. We discussed that he has what looks like a septic joint and that I will await the culture results before discharging because that information will be important for choosing an antibiotic to treat with in the long run. I informed them that it may take several days to get the results back and that he will likely be here for at least 2 midnights more. The demonstrated understanding. Their questions were answered. Exam Narrative: Exam Narrative: General: No acute distress. Awake, alert, oriented. No pallor. No jaundice. Oropharynx: Clear. Mucous membranes moist. Cardiovascular: Irregularly irregular. No murmurs, gallops, or rubs. Respiratory: Breathes with pursed lips on expiration, no acute respiratory distress. Scattered expiratory wheezes. No crackles. Abdomen: Bowel sounds present. Soft, nondistended, nontender. Extremities: Right shoulder has no noticeable effusion, erythema, or warmth. He has some albeit limited range of motion of his right shoulder. Right elbow bandages are clean, dry, and intact. No lower extremity edema. Const: Vital Signs, click to edit/add: Vital Signs - 24 hr 07/22/25 15:27 07/22/25 16:30 07/22/25 17:45 Temperature 101.9 F H Pulse Rate 120 H Pulse Rate [Left R adial] Pulse Rate [Pulse Oximeter] 148 H Respiratory Rate 22 42 H Blood Pressure Blood Pressure [Le ft Arm] Blood Pressure [Le ft Upper Arm] 152/96 H Pulse Oximetry 94 96 94 Oxygen Delivery Me thod Room Air 07/22/25 18:07 07/22/25 18:15 07/22/25 18:30 Temperature Pulse Rate 124 H 127 H 133 H Pulse Rate [Left R adial] Pulse Rate [Pulse Oximeter] Respiratory Rate 27 H 25 H Blood Pressure Blood Pressure [Le ft Arm] Blood Pressure [Le ft Upper Arm] Pulse Oximetry 93 93 92 Oxygen Delivery Me thod 07/22/25 18:43 07/22/25 18:45 07/22/25 19:00 Temperature Pulse Rate 127 H 118 H 118 H Pulse Rate [Left R adial] Pulse Rate [Pulse Oximeter] Respiratory Rate 19 24 22 Blood Pressure 141/92 H Blood Pressure [Le ft Arm] Blood Pressure [Le ft Upper Arm] Pulse Oximetry 93 93 95 Oxygen Delivery Me thod Room Air Room Air 07/22/25 19:07 07/22/25 20:00 07/22/25 21:32 Temperature 99.1 F 99.1 F Pulse Rate 75 Pulse Rate [Left R adial] 109 H Pulse Rate [Pulse Oximeter] Respiratory Rate 18 Blood Pressure Blood Pressure [Le ft Arm] 143/92 H Blood Pressure [Le ft Upper Arm] Pulse Oximetry 94 Oxygen Delivery Me thod Room Air 07/22/25 22:07 07/22/25 22:07 07/22/25 23:00 Temperature 98.1 F Pulse Rate 75 Pulse Rate [Left R adial] 66 66 Pulse Rate [Pulse Oximeter] Respiratory Rate 20 20 Blood Pressure Blood Pressure [Le ft Arm] 155/94 H Blood Pressure [Le ft Upper Arm] Pulse Oximetry 96 Oxygen Delivery Me thod Room Air 07/23/25 03:00 07/23/25 07:00 07/23/25 07:00 Temperature 98.8 F Pulse Rate 72 Pulse Rate [Left R adial] 71 73 Pulse Rate [Pulse Oximeter] Respiratory Rate 18 18 Blood Pressure Blood Pressure [Le ft Arm] 163/88 H Blood Pressure [Le ft Upper Arm] Pulse Oximetry 94 Oxygen Delivery Me thod Room Air 07/23/25 07:29 07/23/25 09:43 07/23/25 09:50 Temperature 97.8 F 97.3 F L 97.3 F L Pulse Rate 67 67 Pulse Rate [Left R adial] 73 Pulse Rate [Pulse Oximeter] Respiratory Rate 18 18 15 Blood Pressure 152/93 H 173/94 H Blood Pressure [Le ft Arm] 150/85 H Blood Pressure [Le ft Upper Arm] Pulse Oximetry 93 91 94 Oxygen Delivery Me thod Room Air Room Air Room Air 07/23/25 09:55 07/23/25 10:00 07/23/25 10:05 Temperature 97.3 F L 97.3 F L 97.3 F L Pulse Rate 67 68 67 Pulse Rate [Left R adial] Pulse Rate [Pulse Oximeter] Respiratory Rate 21 17 12 Blood Pressure 185/106 H 196/101 H 179/100 H Blood Pressure [Le ft Arm] Blood Pressure [Le ft Upper Arm] Pulse Oximetry 92 93 93 Oxygen Delivery Me thod Room Air Room Air Room Air 07/23/25 10:10 07/23/25 10:15 07/23/25 10:20 Temperature 97.3 F L 97.6 F 97.6 F Pulse Rate 67 68 68 Pulse Rate [Left R adial] Pulse Rate [Pulse Oximeter] Respiratory Rate 12 16 12 Blood Pressure 174/103 H 179/99 H 175/109 H Blood Pressure [Le ft Arm] Blood Pressure [Le ft Upper Arm] Pulse Oximetry 93 93 93 Oxygen Delivery Me thod Room Air Room Air Room Air 07/23/25 10:25 07/23/25 10:30 07/23/25 10:35 Temperature 97.6 F 97.6 F 97.6 F Pulse Rate 68 68 68 Pulse Rate [Left R adial] Pulse Rate [Pulse Oximeter] Respiratory Rate 13 18 14 Blood Pressure 165/100 H 171/99 H 170/99 H Blood Pressure [Le ft Arm] Blood Pressure [Le ft Upper Arm] Pulse Oximetry 92 91 [facility] Room Air 07/23/25 10:40 07/23/25 10:45 07/23/25 11:00 Temperature 97.5 F L Pulse Rate Pulse Rate [Left R adial] 69 68 70 Pulse Rate [Pulse Oximeter] Respiratory Rate 16 16 16 Blood Pressure Blood Pressure [Le ft Arm] 162/97 H 164/95 H 167/102 H Blood Pressure [Le ft Upper Arm] Pulse Oximetry 93 93 90 [facility] Room Air Room Air 07/23/25 11:30 07/23/25 12:00 07/23/25 12:00 Temperature 97.1 F L Pulse Rate Pulse Rate [Left R adial] 69 Pulse Rate [Pulse Oximeter] 67 Respiratory Rate 16 16 Blood Pressure Blood Pressure [Le ft Arm] 143/92 H 155/93 H 132/88 Blood Pressure [Le ft Upper Arm] Pulse Oximetry 93 96 [facility] Room Air Labs Labs: Laboratory Results - last 24 hr 07/22/25 07/22/25 07/22/25 16:42 17:10 17:32 WBC 9.46 RBC 4.94 Hgb 13.8 Hct 41.2 MCV 83 MCH 28 MCHC 34 RDW Coeff of Katie 15.3 Plt Count 217 Neut % (Auto) 68.5 Lymph % (Auto) 19.7 L [place] % (Auto) 11.0 Eos % (Auto) 0.2 Baso % (Auto) 0.3 Neut # (Auto) 6.48 Lymph # (Auto) 1.90 [place] # (Auto) 1.00 H Eos # (Auto) 0.02 Baso # (Auto) 0.03 Abs Immat Gran (auto) 0.03 Imm/Tot Granulo (auto) 0.3 INR 1.22 H APTT 37 H VBG pH 7.467 H VBG pCO2 31 L VBG pO2 59.9 H VBG HCO3 22 Sodium 131 L Potassium 4.3 Chloride 97 Carbon Dioxide 20 Anion Gap 14 BUN 25 Creatinine 1.3 Estimated Creat Clear 52.29 Estimated GFR 57 Glucose 135 H Lactate 1.0 Calcium 9.0 Total Bilirubin 1.2 Direct Bilirubin 0.4 AST 21 ALT 15 Alkaline Phosphatase 72 C-Reactive Protein 8.4 H Total Protein 7.8 Albumin 4.2 Procalcitonin 0.13 Fluid Volume 2 Fluid Color Blood Tinged A Fluid Appearance Cloudy A Fluid WBC 216485 Fluid RBC 14894 Fluid Polynuclear WBCs 91 Fluid Mononuclear WBCs 9 SARS-CoV-2 (PCR) Negative SARS-CoV-2 Influenza Type A (PCR) Negative PCR FLU A Influenza Type B (PCR) Negative PCR FLU B RSV (PCR) Negative PCR RSV Lab Acknowledgement 07/22/25 07/23/25 20:15 05:36 WBC 6.46 RBC 4.32 Hgb 12.0 L Hct 36.6 L MCV 85 MCH 28 MCHC 33 RDW Coeff of Katie Plt Count 190 Neut % (Auto) Lymph % (Auto) [place] % (Auto) Eos % (Auto) Baso % (Auto) Neut # (Auto) Lymph # (Auto) [place] # (Auto) Eos # (Auto) Baso # (Auto) Abs Immat Gran (auto) Imm/Tot Granulo (auto) INR 1.31 H APTT VBG pH 7.435 H VBG pCO2 31 L VBG pO2 67.9 H VBG HCO3 21 Sodium 133 L Potassium 4.1 Chloride 104 Carbon Dioxide 20 Anion Gap 9 BUN 22 Creatinine 1.0 Estimated Creat Clear 67.98 Estimated GFR 78 Glucose 106 Lactate Calcium 7.9 L Total Bilirubin Direct Bilirubin AST ALT Alkaline Phosphatase C-Reactive Protein 12.8 H Total Protein Albumin Procalcitonin Fluid Volume Fluid Color Fluid Appearance Fluid WBC Fluid RBC Fluid Polynuclear WBCs Fluid Mononuclear WBCs SARS-CoV-2 (PCR) Influenza Type A (PCR) Influenza Type B (PCR) RSV (PCR) Lab Acknowledgement Test Added Ordering Physician: Alyx Vaughan PA-C Date of Service: 07/22/25 Procedure(s): XR shoulder RT min 2V Accession Number(s): [id number] cc: Alyx Vaughan PA-C; Provider,Not a Local~ For Patients: As a result of the Cures Act, medical imaging exams and procedure reports are released immediately into your electronic medical record. You may view this report before your referring provider. If you have questions, please contact your health care provider. Indication: Right shoulder pain. Technique: Three views of the right shoulder. Comparison: None. Findings: Normal alignment. No fracture is seen. Moderate to severe glenohumeral and acromioclavicular joint osteoarthritis. Calcification is seen within the rotator cuff interval. Impression: Moderate-severe right shoulder osteoarthritis. Dictated by Chris Brady MD @ 07/22/2025 12:19:24 PM (Electronically Signed)
--- NOTE | 2025-07-23 15:12 | PC.NURSE ---
End of shift-- Pt pleasant and cooperative, alert and oriented. VSS and pt is afebrile. SPO2 maintained >90% on RA. Pt transferred to OR for surgery at roughly 0800 today and returned from PACU at 1040. Dressing to right elbow is C/D/I and [facility] WNL. Report to CHRISTOS Michael.
[2025-07-23] MEDS: CEFAZOLIN 2 GM in 0.9 % SODIUM CHLORIDE Mini-bag 100 ML IVPB (16:24)
--- NOTE | 2025-07-23 19:38 | PC.NURSE ---
End of Shift: Patient pleasant and cooperative, A&O. VSS, afebrile. SpO2 maintained above 90% on RA. Dressing to right arm C/D/I. Patient reports pain in his right elbow this shift, managed with PRN medication, see MAR. 1A w/ IV pole. Tolerating?regular?diet.??
[2025-07-24] VITALS (7 sets, daily range): BP systolic 114–168; BP diastolic 69–92; PULSE 67–73; RESP 16–18; TEMP 36.4–36.7; O2SAT 97–98
[2025-07-24] MEDS: CEFAZOLIN 2 GM in 0.9 % SODIUM CHLORIDE Mini-bag 100 ML IVPB ×3 (00:59→16:08)
[2025-07-24] MEDS: HYDROCODONE-ACETAMIN 5-325 MG 1 TAB PO (02:52)
[2025-07-24] MEDS: NICOTINE 21 MG PATCH 1 PATCH TRANSDERMA ×2 (05:47→12:30)
[2025-07-24 06:21] LABS: Hematocrit* 34.6 % (37.0-53.0); Hemoglobin* 11.5 gm/dL (13.5-17.5); Mean Corpuscular HGB Conc 33 gm/dL (32-36); Mean Corpuscular Hemoglobin 28 pg (26-34); Mean Corpuscular Volume 84 fL (80-100); Red Blood Count* 4.10 m/uL (4.30-5.90); White Blood Count* 10.41 K/uL (4.50-11.00)
[2025-07-24 06:26] LABS: Slide Review Reflex No
--- NOTE | 2025-07-24 06:30 | PC.NURSE ---
End of shift report : VSS. Afebrile. R elbow dressing is C/D/I,?CMS is intact.?On RA. Denies nausea.?Ambulates SBA with?IV?pole.?Pt ambulated the halls this shift with policy writer.?Bed alarm on, call light within reach.?
[2025-07-24 06:35] LABS: Chloride* 104 mmol/L (96-114); Potassium* 4.3 mmol/L (3.6-5.1); Sodium* 132 mmol/L (135-149)
[2025-07-24 06:39] LABS: Anion Gap 10 mEq/L (7-15); Blood Urea Nitrogen* 26 mg/dL (7-30); Calcium* 7.9 mg/dL (8.4-10.6); Carbon Dioxide* 18 mmol/L (20-32); Creatinine* 0.9 mg/dL (0.5-1.5); Est. Creatinine Clearance* 67.98; Estimated Glomerular Filt Rate 89 ml/min; Glucose* 159 mg/dL (60-115)
--- NOTE | 2025-07-24 07:58 | CRLHL7_ITS ---
For Patients: As a result of the Century Cures Act, medical imaging exams and procedure reports are released immediately into your electronic medical record. You may view this report before your referring provider. If you have questions, please contact your health care provider. Indication: Dyspnea on exertion Technique: Chest 1 view Comparison: Chest x-ray 07/22/2025 Findings/Impression: Cardiovascular and mediastinum: Normal heart size with atherosclerotic calcification. Lungs and pleural space: No pleural effusion or pneumothorax. Areas of discoid atelectasis within the right lung which appear fairly similar to the prior examination. Some bronchial wall thickening which can be seen in bronchitis or reactive airways disease. Bones and soft tissues: No acute findings. Dictated by Wil Farris MD @ 07/24/2025 8:40:32 AM (Electronically Signed)
[2025-07-24] MEDS: ATORVASTATIN CALCIUM 40 MG TABLET PO (08:41)
[2025-07-24] MEDS: OMEPRAZOLE 20 MG CAPSULE DR 40 MG PO (08:41)
[2025-07-24] MEDS: METOPROLOL SUCCINATE (XL) 25 MG TAB 12.5 MG PO ×2 (08:41→20:38)
[2025-07-24] MEDS: APIXABAN 5 MG TABLET PO ×2 (08:42→20:38)
[2025-07-24] MEDS: SENNOSIDES/DOCUSATE TABLET 1 TAB PO ×2 (08:42→20:38)
[2025-07-24] MEDS: SODIUM CHLORIDE 0.9 % (FLUSH) 10 ML SYRINGE 5 ML IVF ×2 (08:44→20:39)
--- NOTE | 2025-07-24 09:11 | P.ORPN_ITS ---
Subjective Subjective Time Seen by Provider: :11 Date Seen: 07/24/25 Principal diagnosis: Septic right elbow Interval history: Rosendo states the right shoulder and right elbow are feeling improved today. He has been ranging the elbow. He will remain in the hospital until culture and sensitivity have returned. Cultures were taken yesterday. Ortho Exam Narrative Exam Narrative: Alert and oriented x3. Patient is in no acute distress. Converses without labored breathing. Hearing is grossly intact. Ambulates with a Normal gait. Examination of the right elbow shows the dressing is intact. Soft tissue edema. No erythema. No drainage into the dressing. He is able to range his right elbow without significant pain. He lacks full extension and full flexion. CMS intact right upper extremity. No edema about the hand. Range of motion of the fingers is normal. He can range the shoulder without pain. Const Vital Signs, click to edit/add: Vital Signs - 24 hr 07/23/25 09:43 07/23/25 09:50 07/23/25 09:55 Temperature 97.3 F L 97.3 F L 97.3 F L Pulse Rate 67 67 67 Pulse Rate [Left Radial] Pulse Rate [Pulse Oximeter] Respiratory Rate 18 15 21 Blood Pressure 152/93 H 173/94 H 185/106 H Blood Pressure [Left Arm] Pulse Oximetry 91 94 92 Oxygen Delivery Method Room Air Room Air Room Air 07/23/25 10:00 07/23/25 10:05 07/23/25 10:10 Temperature 97.3 F L 97.3 F L 97.3 F L Pulse Rate 68 67 67 Pulse Rate [Left Radial] Pulse Rate [Pulse Oximeter] Respiratory Rate 17 12 12 Blood Pressure 196/101 H 179/100 H 174/103 H Blood Pressure [Left Arm] Pulse Oximetry 93 93 93 Oxygen Delivery Method Room Air Room Air Room Air 07/23/25 10:15 07/23/25 10:20 07/23/25 10:25 Temperature 97.6 F 97.6 F 97.6 F Pulse Rate 68 68 68 Pulse Rate [Left Radial] Pulse Rate [Pulse Oximeter] Respiratory Rate 16 12 13 Blood Pressure 179/99 H 175/109 H 165/100 H Blood Pressure [Left Arm] Pulse Oximetry 93 93 92 Oxygen Delivery Method Room Air Room Air Room Air 07/23/25 10:30 07/23/25 10:35 07/23/25 10:40 Temperature 97.6 F 97.6 F 97.5 F L Pulse Rate 68 68 Pulse Rate [Left Radial] 69 Pulse Rate [Pulse Oximeter] Respiratory Rate 18 14 16 Blood Pressure 171/99 H 170/99 H Blood Pressure [Left Arm] 162/97 H Pulse Oximetry 91 92 93 Oxygen Delivery Method Room Air Room Air Room Air 07/23/25 10:45 07/23/25 11:00 07/23/25 11:30 Temperature Pulse Rate Pulse Rate [Left Radial] 68 70 Pulse Rate [Pulse Oximeter] Respiratory Rate 16 16 Blood Pressure Blood Pressure [Left Arm] 164/95 H 167/102 H 143/92 H Pulse Oximetry 93 90 Oxygen Delivery Method Room Air Room Air 07/23/25 12:00 07/23/25 12:00 07/23/25 12:30 Temperature 97.1 F L 97.3 F L Pulse Rate Pulse Rate [Left Radial] 69 Pulse Rate [Pulse Oximeter] 67 67 Respiratory Rate 16 16 16 Blood Pressure Blood Pressure [Left Arm] 155/93 H 132/88 140/91 H Pulse Oximetry 93 96 93 Oxygen Delivery Method Room Air Room Air Room Air 07/23/25 13:30 07/23/25 14:30 07/23/25 15:00 Temperature Pulse Rate 68 Pulse Rate [Left Radial] Pulse Rate [Pulse Oximeter] 67 65 Respiratory Rate 16 Blood Pressure Blood Pressure [Left Arm] 152/93 H 129/87 Pulse Oximetry 97 Oxygen Delivery Method Room Air 07/23/25 15:00 07/23/25 15:30 07/23/25 16:30 Temperature 97.2 F L Pulse Rate Pulse Rate [Left Radial] Pulse Rate [Pulse Oximeter] 63 63 66 Respiratory Rate 16 16 Blood Pressure Blood Pressure [Left Arm] 130/78 144/86 H Pulse Oximetry 98 Oxygen Delivery Method Room Air 07/23/25 19:00 07/23/25 20:20 07/23/25 22:54 Temperature 97.8 F 97.8 F Pulse Rate Pulse Rate [Left Radial] Pulse Rate [Pulse Oximeter] 68 68 69 Respiratory Rate 18 18 16 Blood Pressure Blood Pressure [Left Arm] 136/80 102/66 Pulse Oximetry 96 94 Oxygen Delivery Method Room Air Room Air 07/23/25 22:57 07/24/25 02:42 07/24/25 06:57 Temperature 97.7 F Pulse Rate 67 67 Pulse Rate [Left Radial] Pulse Rate [Pulse Oximeter] 67 Respiratory Rate 18 Blood Pressure Blood Pressure [Left Arm] 125/82 Pulse Oximetry 97 Oxygen Delivery Method Room Air 07/24/25 07:45 07/24/25 07:45 Temperature 97.7 F Pulse Rate Pulse Rate [Left Radial] 68 Pulse Rate [Pulse Oximeter] 68 68 Respiratory Rate 18 18 Blood Pressure Blood Pressure [Left Arm] 114/69 Pulse Oximetry 97 Oxygen Delivery Method Room Air Assessment and Plan Assessment and plan (1) H/O elbow surgery: Problem details: Right elbow irrigation and debridement (07/23/2025, Dr. Ha) Status: Acute Assessment and Plan: Surgery went well yesterday. Cultures were taken from the joint. Rosendo will work on Range of motion of the right elbow, especially the extremes of ra nge of motion. We discussed this at length. Dressing will remain on For 1-2 weeks. He can shower. Dressing is waterproof. Occupational therapy will work with him today. He will stay in the hospital until culture and sensitivities have returned. IV antibiotics. Ice and elevation p.r.n.. a warm blanket is placed on him. Orthopedics to follow along. Note, dictation performed with voice recognition, and as a result, wrong word or sound like substitutions may have occurred. There may be areas in the script that have gone undetected. Please consider this when interpreting information found in the chart.
--- NOTE | 2025-07-24 10:41 | PM.IMPN1 ---
Assessment and Plan Assessment and plan (1) Septic joint of right elbow: Problem comment: -right elbow x-ray shows Mildly limited evaluation. Within these limitations, no definite acute fracture or dislocation of the right elbow. There is soft tissue swelling posterior to the distal aspect of the right humerus, as well as posterior to the olecranon. There may be an elbow joint effusion versus overlying skin folds -ortho assessed patient in ED, aspiration obtained - cloudy blood-tinged fluid, cultures pending. Plan for OR washout 07/[address] Ha -management as above -NPO at midnight, IVF -last dose apixaban 07/22 am - HOLD. SCDs for VTE PPX -07/23 BCx2 NGTD. Synovial fluid gram stain neg, cultures pending. MRSA screen pending. Continue cefazolin and vancomycin pending cultures. - 07/24 BC x 2 NGTD. Synovial fluid had high WBCs, and history concerning for septic joint, cultures pending. MRSA screen negative - stop Vanco. Continue cefazolin pending cultures. May be complicated by pseudogout - fluid crystal analysis shows calcium pyrophosphate dihydrate crystals. I spoke with Faviola from ortho about the fluid culture results. Since he is clinically much improved after the washout and there is probability of coexisting septic joint, will hold off on steroids. Status: Acute (2) Hyponatremia: Problem comment: -sodium 131, previous 136 -receiving NS per sepsis protocol, monitor - 07/23 sodium 133, improving. Asymptomatic, continue to monitor - 07/24 sodium 132, stable, asymptomatic, monitor Status: Acute (3) Atrial flutter with rapid ventricular response: Problem comment: -history of atrial flutter on metoprolol and apixiban - took both this am 07/22 -1st EKG showing atrial flutter with variable AV block, ventricular rate 119 -heart rate improving with sepsis IVF -repeat EKG shows aflutter, rate 71, give evening dose home metoprolol - 07/23 Rate controlled today. Continue metoprolol. Discussed with ortho - okay to restart apixaban in am. - 07/24 Remains rate controlled. Restarted apixaban this morning. Patient also takes clopidogrel at home, unclear for what diagnosis. Obtain outside records, hold off on restarting today. Status: Acute (4) COPD (chronic obstructive pulmonary disease): Problem comment: -active tobacco use, weekly, not daily -perioperative pulmonary hygiene encouraged, incentive spirometry - RT consult Status: Chronic (5) GERD (gastroesophageal reflux disease): Problem comment: -pantoprazole 40 mg daily Status: Chronic (6) Bipolar 1 disorder: Problem comment: -per EMR, stable, continue Lamictal and olanzapine Status: Chronic (7) Essential (primary) hypertension: Problem comment: -continue metoprolol 12.5 mg b.i.d. Status: Chronic (8) Stage 3 chronic kidney disease: Problem comment: -CKD stage IIIA -creatinine 0.9, stable, previous 1.3 Status: Chronic (9) Hyperlipidemia: Problem comment: -continue atorvastatin 40 mg Status: Chronic (10) Right shoulder pain: Problem comment: -onset 1 week ago, decreased range of motion. History of freezing up as well. No injury/trauma. Exam is reassuring. Shoulder x-ray shows moderate-severe right shoulder OA -pain management/symptomatic cares -outpatient follow-up Status: Acute (11) Sepsis: Problem comment: -meet sepsis criteria fever 101.9?, HR > 120, respiratory rate > 20, suspect septic joint -lactate 1.0, procal 0.13, CRP 8.4, no leukocytosis, added VBG pH 7.467, pCO2 31, PO2 59, HC03 22 -received 1 L NS in ED, 2nd bolus on arrival to floor, will re-evaluate for additional 500 mL bolus followed by maintenance fluids (goal 2580mL for 86 kg man) -received Zosyn and vancomycin in ED. Continue with vancomycin and switch to cefazolin 2 g q.8 -fever management, tachycardia improving - repeat EKG aflutter with av block, vent rate 71 -BC x2, aspirate cultures pending - 07/23 Sepsis RESOLVED Status: Acute (12) H/O elbow surgery: Problem comment: Right elbow irrigation and debridement (07/23/2025, Dr. Ha) - routine post op cares and pain control Status: Acute (13) VALLADARES (dyspnea on exertion): Problem comment: - 07/24 Admitted for septic joint, has h/o aflutter, COPD. Patient is poor historian and has been on the road for 7 years, possibly with cardiac w/u including ECHO a year ago. VALLADARES today. Suspect this is COPD, but cannot r/o cardiac cause, especially in setting of septic joint - check ECHO. Also will have RT see patient, add BNP, stop IVF, check CXR and give a dose of lasix. Status: Acute Total Time Spent Total Time Spent: Today I spent 50 minutes seeing the patient on 2 separate occasions, discussing with the patient and his , reviewing Expanse and EPIC notes/diagnostics, discussing the care plan with our care time that includes social work, PT/OT, pharmacy, RT, nursing home and documenting my impressions and plan in the medical record. Subjective Time Seen by Provider: 07:45 Date Seen: 07/24/25 Interval history: Right elbow and shoulder pain are improved today. Complains of dyspnea on exertion when walking down the [place], notes that this has actually been going on for years. He states he has had an echocardiogram as recently as a year ago when he was in [place]. He is willing to sign for us to get those records. Exam Narrative: Exam Narrative: General: No acute distress. Awake, alert, oriented. No pallor. No jaundice. Oropharynx: Clear. Mucous membranes moist. Cardiovascular: Irregularly irregular. No murmurs, gallops, or rubs. Respiratory: No pursed lips breathing today, no respiratory distress. No crackles or wheezes. Abdomen: Bowel sounds present. Soft, nondistended, nontender. Extremities: Right elbow bandages are clean, dry, and intact. No lower extremity edema. Const: Vital Signs, click to edit/add: Vital Signs - 24 hr 07/23/25 10:45 07/23/25 11:00 07/23/25 11:30 Temperature Pulse Rate Pulse Rate [Left R adial] 68 70 Pulse Rate [Pulse Oximeter] Respiratory Rate 16 16 Blood Pressure [Le ft Arm] 164/95 H 167/102 H 143/92 H Pulse Oximetry 93 90 Oxygen Delivery Me thod Room Air Room Air 07/23/25 12:00 07/23/25 12:00 07/23/25 12:30 Temperature 97.1 F L 97.3 F L Pulse Rate Pulse Rate [Left R adial] 69 Pulse Rate [Pulse Oximeter] 67 67 Respiratory Rate 16 16 16 Blood Pressure [Le ft Arm] 155/93 H 132/88 140/91 H Pulse Oximetry 93 96 93 Oxygen Delivery Me thod Room Air Room Air Room Air 07/23/25 13:30 07/23/25 14:30 07/23/25 15:00 Temperature Pulse Rate 68 Pulse Rate [Left R adial] Pulse Rate [Pulse Oximeter] 67 65 Respiratory Rate 16 Blood Pressure [Le ft Arm] 152/93 H 129/87 Pulse Oximetry 97 Oxygen Delivery Dc thod Room Air 07/23/25 15:00 07/23/25 15:30 07/23/25 16:30 Temperature 97.2 F L Pulse Rate Pulse Rate [Left R adial] Pulse Rate [Pulse Oximeter] 63 63 66 Respiratory Rate 16 16 Blood Pressure [Le ft Arm] 130/78 144/86 H Pulse Oximetry 98 [facility] 07/23/25 19:00 07/23/25 20:20 07/23/25 22:54 Temperature 97.8 F 97.8 F Pulse Rate Pulse Rate [Left R adial] Pulse Rate [Pulse Oximeter] 68 68 69 Respiratory Rate 18 18 16 Blood Pressure [Le ft Arm] 136/80 102/66 Pulse Oximetry 96 94 [facility] Room Air 07/23/25 22:57 07/24/25 02:42 07/24/25 06:57 Temperature 97.7 F Pulse Rate 67 67 Pulse Rate [Left R adial] Pulse Rate [Pulse Oximeter] 67 Respiratory Rate 18 Blood Pressure [Le ft Arm] 125/82 Pulse Oximetry 97 [facility] 07/24/25 07:45 07/24/25 07:45 Temperature 97.7 F Pulse Rate Pulse Rate [Left R adial] 68 Pulse Rate [Pulse Oximeter] 68 68 Respiratory Rate 18 18 Blood Pressure [Le ft Arm] 114/69 Pulse Oximetry 97 [facility] Labs Labs: Laboratory Results - last 24 hr 07/22/25 07/24/25 17:32 06:05 WBC 10.41 RBC 4.10 L Hgb 11.5 L Hct 34.6 L MCV 84 MCH 28 MCHC 33 Plt Count 192 Sodium 132 L Potassium 4.3 Chloride 104 Carbon Dioxide 18 L Anion Gap 10 BUN 26 Creatinine 0.9 Estimated Creat Clear 67.98 Estimated GFR 89 Glucose 159 H Calcium 7.9 L C-Reactive Protein 10.0 H Fluid Crystal ID See Scanned Report Ordering Physician: Natalia Molina M.D. Date of Service: 07/24/25 Procedure(s): XR chest 1V portable Accession Number(s): [id number] cc: Natalia Molina M.D.; Provider,Not a Local~ For Patients: As a result of the Cures Act, medical imaging exams and procedure reports are released immediately into your electronic medical record. You may view this report before your referring provider. If you have questions, please contact your health care provider. Indication: Dyspnea on exertion Technique: Chest 1 view Comparison: Chest x-ray 07/22/2025 Findings/Impression: Cardiovascular and mediastinum: Normal heart size with atherosclerotic calcification. Lungs and pleural space: No pleural effusion or pneumothorax. Areas of discoid atelectasis within the right lung which appear fairly similar to the prior examination. Some bronchial wall thickening which can be seen in bronchitis or reactive airways disease. Bones and soft tissues: No acute findings. Dictated by Wil Farris MD @ 07/24/2025 8:40:32 AM (Electronically Signed)
[2025-07-24] MEDS: FUROSEMIDE 10 MG/ML inj 40 MG IVP (11:29)
[2025-07-24 11:50] LABS: NT Pro B Type NatriureticPept* 3220 pg/mL (See Note)
--- NOTE | 2025-07-24 14:03 | PC.NURSE ---
End of shift. pt has been very pleasant. he is alert x4./ he is a . R elbow dressing is C/D/I,?CMS is intact.he is eating, drinking and voiding. ?he is up SBA, with?IV?pole.?Pt ambulated the halls. call light within reach. he got IV lasix.
--- NOTE | 2025-07-24 22:42 | PC.NURSE ---
Pt ind in room, pleasant and cooperative with cares.Upon assessment pt reported pain 2-6/10, prn pain meds given per oct. R elbow dressing clean dry and intact. Pt sleeping in bed at this time, chest rise and fall noted, no concerns with pt at this time
[2025-07-25] MEDS: CEFAZOLIN 2 GM in 0.9 % SODIUM CHLORIDE Mini-bag 100 ML IVPB ×2 (00:16→08:44)
[2025-07-25] MEDS: ACETAMINOPHEN 325 MG TABLET 1000 MG PO ×2 (00:32→08:13)
[2025-07-25 03:00] VITALS: BP 146/82; PULSE 69; PULSE 71; RESP 16; TEMP 36.4; O2SAT 97
--- NOTE | 2025-07-25 05:40 | PC.NURSE ---
Patient Independent in room, His dressing is clean,dry, and intact. Patient utilized prn medications to manage pain. Patient received antibiotics as ordered.
[2025-07-25 06:10] LABS: Hematocrit* 33.6 % (37.0-53.0); Hemoglobin* 11.1 gm/dL (13.5-17.5); Mean Corpuscular HGB Conc 33 gm/dL (32-36); Mean Corpuscular Hemoglobin 28 pg (26-34); Mean Corpuscular Volume 85 fL (80-100); Red Blood Count* 3.97 m/uL (4.30-5.90); White Blood Count* 8.03 K/uL (4.50-11.00)
[2025-07-25 06:12] LABS: Slide Review Reflex No
[2025-07-25 06:19] LABS: Chloride* 105 mmol/L (96-114); Potassium* 3.9 mmol/L (3.6-5.1); Sodium* 135 mmol/L (135-149)
[2025-07-25 06:23] LABS: Anion Gap 9 mEq/L (7-15); Blood Urea Nitrogen* 24 mg/dL (7-30); Calcium* 8.0 mg/dL (8.4-10.6); Carbon Dioxide* 21 mmol/L (20-32); Creatinine* 1.0 mg/dL (0.5-1.5); Est. Creatinine Clearance* 67.98; Estimated Glomerular Filt Rate 78 ml/min; Glucose* 114 mg/dL (60-115)
[2025-07-25 07:00] VITALS: BP 145/97; PULSE 69; PULSE 70; RESP 18; O2SAT 96
[2025-07-25] MEDS: METOPROLOL SUCCINATE (XL) 25 MG TAB 12.5 MG PO (08:45)
[2025-07-25] MEDS: OMEPRAZOLE 20 MG CAPSULE DR 40 MG PO (08:45)
[2025-07-25] MEDS: APIXABAN 5 MG TABLET PO (08:47)
[2025-07-25] MEDS: ATORVASTATIN CALCIUM 40 MG TABLET PO (08:47)
[2025-07-25] MEDS: SODIUM CHLORIDE 0.9 % (FLUSH) 10 ML SYRINGE 5 ML IVF (08:49)
[2025-07-25] MEDS: COLCHICINE 0.6 MG CAPSULE PO (10:45)
[2025-07-25 10:52] VITALS: BP 142/89; PULSE 68; RESP 18; TEMP 36.6; O2SAT 97
--- NOTE | 2025-07-25 10:54 | P.ORPN_ITS ---
Subjective Subjective Time Seen by Provider: 10:54 Date Seen: 07/25/25 Principal diagnosis: Septic right elbow/pseudogout Interval history: Semaj is comfortable. He is having breakfast. He states he got his appetite back. He is looking forward to going home. He has no pain with use of his arm while eating. Ortho Exam Narrative Exam Narrative: Alert and oriented x3. Patient is in no acute distress. Converses without labored breathing. Hearing is grossly intact. Ambulates with a normal gait. Examination of the right elbow shows dressing is in place. Swelling has decreased somewhat. He is more easily able to extend and flex his elbow, this is improved from yesterday. He is lacking the extremes of extension and flexion by a few degrees. CMS intact right upper extremity. No erythema or warmth or sign of infection. No sign of DVT. Const Vital Signs, click to edit/add: Vital Signs - 24 hr 07/24/25 11:40 07/24/25 15:00 07/24/25 15:00 Temperature 98.0 F 97.5 F L Pulse Rate Pulse Rate [Left Radial] 71 Pulse Rate [Pulse Oximeter] 71 72 72 Respiratory Rate 18 16 16 Blood Pressure [Left Arm] 147/84 H 125/80 Pulse Oximetry 97 98 Oxygen Delivery Method Room Air Room Air 07/24/25 15:00 07/24/25 19:00 07/24/25 23:00 Temperature 97.5 F L 97.6 F Pulse Rate 72 Pulse Rate [Left Radial] 71 Pulse Rate [Pulse Oximeter] 73 73 Respiratory Rate 18 18 Blood Pressure [Left Arm] 168/88 H 161/92 H Pulse Oximetry 97 97 Oxygen Delivery Method Room Air Room Air 07/24/25 23:00 07/24/25 23:00 07/25/25 03:00 Temperature 97.6 F Pulse Rate 69 Pulse Rate [Left Radial] 71 71 Pulse Rate [Pulse Oximeter] 73 69 Respiratory Rate 18 16 Blood Pressure [Left Arm] 146/82 H Pulse Oximetry 97 Oxygen Delivery Method Room Air 07/25/25 07:00 07/25/25 07:00 07/25/25 07:00 Temperature Pulse Rate 69 Pulse Rate [Left Radial] Pulse Rate [Pulse Oximeter] 70 70 Respiratory Rate 18 Blood Pressure [Left Arm] 145/97 H Pulse Oximetry 96 Oxygen Delivery Method Room Air 12/11/25 10:52 Temperature 97.9 F Pulse Rate Pulse Rate [Left Radial] Pulse Rate [Pulse Oximeter] 68 Respiratory Rate 18 Blood Pressure [Left Arm] 142/89 H Pulse Oximetry 97 Oxygen Delivery Method Room Air Assessment and Plan Assessment and plan (1) 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 Initiate 4-day course of colchicine 0.6 mg bid , then 0.6 mg once daily. Status: Acute (2) H/O elbow surgery: Problem details: Right elbow irrigation and debridement (07/23/2025, Dr. Ha) - routine post op cares and pain control Status: Acute Assessment and Plan: Rosendo is doing very well at this time. Dr. Jurado and I discussed his medication discharge plan which includes colchicine and oral cephalexin. He will discharge when medically appropriate, possibly today. No restriction on use of the right elbow. Return to clinic in 1 week for wound check. Cultures have not finalize d. No growth thus far. Tylenol and ice for discomfort. No need for narcotics at this point. They make him constipated.
--- NOTE | 2025-07-25 14:47 | P.DS_ITS ---
DS: Providers Provider Date Seen: 07/25/25 Date of admission: 07/22/25 18:55 Primary care physician: Not a Local Provider Admitting Clinician: Alyx Ha MD Consults: 07/24/25 10:52 Consult to Respiratory Therapy [CONS] Routine Comment: Reason(s) for RT Consult:: Consult Attending Physician on discharge: Alpesh James MD Date of Discharge: 07/25/25 DS: Diagnosis Discharge Diagnosis (1) Sepsis: Status: Acute Problem details: -meet sepsis criteria fever 101.9?, HR > 120, respiratory rate > 20, suspect septic joint -lactate 1.0, procal 0.13, CRP 8.4, no leukocytosis, added VBG pH 7.467, pCO2 31, PO2 59, HC03 22 -received 1 L NS in ED, 2nd bolus on arrival to floor, will re-evaluate for additional 500 mL bolus followed by maintenance fluids (goal 2580mL for 86 kg man) -received Zosyn and vancomycin in ED. Continue with vancomycin and switch to cefazolin 2 g q.8 -fever management, tachycardia improving - repeat EKG aflutter with av block, vent rate 71 -BC x2, aspirate cultures pending - 07/23 Sepsis RESOLVED (2) Septic joint of right elbow: Status: Acute Problem details: -right elbow x-ray shows Mildly limited evaluation. Within these limitations, no definite acute fracture or dislocation of the right elbow. There is soft tissue swelling posterior to the distal aspect of the right humerus, as well as posterior to the olecranon. There may be an elbow joint effusion versus overlying skin folds -ortho assessed patient in ED, aspiration obtained - cloudy blood-tinged fluid, cultures pending. Plan for OR washout 07/[address] Ha -management as above -NPO at midnight, IVF -last dose apixaban 12/8 am - HOLD. SCDs for VTE PPX -07/23 BCx2 NGTD. Synovial fluid gram stain neg, cultures pending. MRSA screen pending. Continue cefazolin and vancomycin pending cultures. - 07/24 BC x 2 NGTD. Synovial fluid had high WBCs, and history concerning for septic joint, cultures pending. MRSA screen negative - stop Vanco. Continue cefazolin pending cultures. May be complicated by pseudogout - fluid crystal analysis shows calcium pyrophosphate dihydrate crystals. I spoke with Faviola from ortho about the fluid culture results. Since he is clinically much improved after the washout and there is probability of coexisting septic joint, will hold off on steroids. - 07/25/2025: No signs or symptoms of active infection or sepsis. Wound culture still negative. Will change from cefazolin IV to cephalexin PO for 10 more days and treat underlying CPPD disease as stated above, plus follow-up with PCP. Return if worsens. 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 Initiate 4-day course of colchicine 0.6 mg bid , then 0.6 mg once daily. (4) H/O elbow surgery: Status: Acute Problem details: Right elbow irrigation and debridement (07/23/2025, Dr. Ha) - routine post op cares and pain control (5) COPD (chronic obstructive pulmonary disease): Status: Chronic Problem details: -active tobacco use, weekly, not daily -perioperative pulmonary hygiene encouraged, incentive spirometry - RT consult (6) VALLADARES (dyspnea on exertion): Status: Acute Problem details: - 07/24 Admitted for septic joint, has h/o aflutter, COPD. Patient is poor historian and has been on the road for 7 years, possibly with cardiac w/u including ECHO a year ago. VALLADARES today. Suspect this is COPD, but cannot r/o cardiac cause, especially in setting of septic joint - check ECHO. Also will have RT see patient, add BNP, stop IVF, check CXR and give a dose of lasix. (7) Hyperlipidemia: Status: Chronic Problem details: -continue atorvastatin 40 mg (8) Hyponatremia: Status: Acute Problem details: -sodium 131, previous 136 -receiving NS per sepsis protocol, monitor - 07/23 sodium 133, improving. Asymptomatic, continue to monitor - 07/24 sodium 132, stable, asymptomatic, monitor (9) Atrial flutter with rapid ventricular response: Status: Acute Problem details: -history of atrial flutter on metoprolol and apixiban - took both this am 07/22 -1st EKG showing atrial flutter with variable AV block, ventricular rate 119 -heart rate improving with sepsis IVF -repeat EKG shows aflutter, rate 71, give evening dose home metoprolol - 07/23 Rate controlled today. Continue metoprolol. Discussed with ortho - okay to restart apixaban in am. - 07/24 Remains rate controlled. Restarted apixaban this morning. Patient also takes clopidogrel at home, unclear for what diagnosis. Obtain outside records, hold off on restarting today. (10) Tobacco use disorder: Status: Acute (11) Atrial flutter: Status: Acute (12) Bipolar 1 disorder: Status: Chronic Problem details: -per EMR, stable, continue Lamictal and olanzapine (13) Essential (primary) hypertension: Status: Chronic Problem details: -continue metoprolol 12.5 mg b.i.d. (14) Stage 3 chronic kidney disease: Status: Chronic Problem details: -CKD stage IIIA -creatinine 0.9, stable, previous 1.3 (15) GERD (gastroesophageal reflux disease): Status: Chronic Problem details: -pantoprazole 40 mg daily DS: Summary Hospital Course Hospital Course: 74-year-old man presented with sepsis and was found to have a septic right elbow. Treated with IV antibiotics and IV fluids empirically. Unfortunately culture was not obtained before administering IV antibiotics. Synovial fluid aspirate eventually positive for the calcium pyrophosphate crystals consistent with calcium pyrophosphate deposition disease. Wound cultures negative to date. Given his septic presentation a decision was made to treat him with oral antibiotics for 10 additional days after discharge for possible septic joint. Additionally, initiated colchicine therapy 0.6 mg orally twice daily for 4 days and then switch to 0.6 mg once daily for long-term treatment. Will have outpatient followup as specified. Time Spent with Patient Time attestation: Total time spent providing and/or coordinating discharge services: Time spent: Greater than 30 minutes Exam Narrative: Exam Narrative: General: No acute distress. Awake, alert, oriented. No pallor. No jaundice. Oropharynx: Clear. Mucous membranes moist. Cardiovascular: Irregularly irregular. No murmurs, gallops, or rubs. Respiratory: No pursed lips breathing today, no respiratory distress. No crackles or wheezes. Abdomen: Bowel sounds present. Soft, nondistended, nontender. Extremities: Right elbow bandages are clean, dry, and intact. No lower extremity edema. Const: Vital Signs, click to edit/add: Vital Signs - 24 hr 07/24/25 15:00 07/24/25 15:00 07/24/25 15:00 Temperature 36.4 C L Pulse Rate 72 Pulse Rate [Left R adial] Pulse Rate [Pulse Oximeter] 72 72 Respiratory Rate 16 16 Blood Pressure [Le ft Arm] 125/80 Pulse Oximetry 98 Oxygen Delivery Me thod Room Air 07/24/25 19:00 07/24/25 23:00 07/24/25 23:00 Temperature 36.4 C L 36.4 C Pulse Rate 69 Pulse Rate [Left R adial] 71 Pulse Rate [Pulse Oximeter] 73 73 Respiratory Rate 18 18 Blood Pressure [Le ft Arm] 168/88 H 161/92 H Pulse Oximetry 97 97 Oxygen Delivery Nc thod Room Air Room Air 07/24/25 23:00 07/25/25 03:00 07/25/25 07:00 Temperature 36.4 C Pulse Rate Pulse Rate [Left R adial] 71 71 Pulse Rate [Pulse Oximeter] 73 69 70 Respiratory Rate 18 16 18 Blood Pressure [Le ft Arm] 146/82 H 145/97 H Pulse Oximetry 97 96 Oxygen Delivery Nc thod Room Air Room Air 07/25/25 07:00 07/25/25 07:00 07/25/25 10:52 Temperature 36.6 C Pulse Rate 69 Pulse Rate [Left R adial] Pulse Rate [Pulse Oximeter] 70 68 Respiratory Rate 18 Blood Pressure [Le ft Arm] 142/89 H Pulse Oximetry 97 Oxygen Delivery Nc thod Room Air DS: Data Data Completed and Pending Labs on day of discharge: Labs from last 24 hours 07/25/25 05:45 WBC 8.03 RBC 3.97 L Hgb 11.1 L Hct 33.6 L MCV 85 MCH 28 MCHC 33 Plt Count 190 Sodium 135 Potassium 3.9 Chloride 105 Carbon Dioxide 21 Anion Gap 9 BUN 24 Creatinine 1.0 Estimated Creat Clear 67.98 Estimated GFR 78 Glucose 114 Calcium 8.0 L C-Reactive Protein 4.0 H Preliminary micro results at discharge 07/23/25 09:03 Aerobic Culture - Preliminary Elbow Right NO GROWTH AFTER 48 HOURS 07/22/25 17:10 Blood Culture - Preliminary Blood NO GROWTH AFTER 48 HOURS 07/22/25 16:42 Blood Culture - Preliminary Blood NO GROWTH AFTER 48 HOURS Discharge Plan Discharge Disposition: Home, Self-Care Date of Admission: 07/22/25 18:55 Attending Provider on Discharge: Alpesh James Consulting Providers: Jared Mustafa Primary Care Provider: Provider,Not a Local Condition: Improved Anticipated Discharge Date/Time: 07/25/25 15:00 Discharge Medications: New cephalexin 500 mg capsule 500 mg PO TID 10 Days Qty: 30 0RF colchicine 0.6 mg tablet 0.6 mg PO BID 4 Days Qty: 8 2RF colchicine 0.6 mg tablet 0.6 mg PO DAILY 30 Days Qty: 30 2RF Rx Instructions: Begin this prescription of completion of the colchicine 0.6 mg twice daily for 4 days regimen. Continued atorvastatin 40 mg tablet 40 mg PO DAILY lamotrigine 25 mg tablet 50 mg PO BID pantoprazole 40 mg tablet,delayed release (DR/EC) 40 mg PO DAILY metoprolol succinate 25 mg tablet extended release 24 hr 12.5 mg PO BID Eliquis 5 mg tablet 5 mg PO BID olanzapine 10 mg tablet 10 mg PO HS clopidogrel 75 mg tablet 75 mg PO DAILY Discharge Orders: Discharge Order (Routine); Ordered 07/25/25 Ordered By: Alpesh James Patient Education: Cephalexin (By mouth), Colchicine (By mouth), Incision and Drainage (DC) Additional Instructions: 1. Follow-up with primary care physician in 5-10 days 2. Return to clinic or hospital sooner if needed 3. For your overall health, recommend decreaseing tobacco use withgoal of todal cessation Activity Level: Activity as Tolerated Activity Detail: Work on obtaining complete range of motion of the right elbow. Use of the right upper extremity without restriction. Leave dressing on elbow. May shower. Discharge Diet: Regular Follow Up Appointments: Rosalina Barba PA-C [Physician Access Manager, Orthopedics] - 08/01/25 1:30 pm Referral Note: [facility] for wound check. Provider,Not a Local [Primary Care Provider, Family Practice] Joshua Traore MD [Staff Physician, Family Practice] - 07/31/25 1:30 pm Referral Note: [facility]. [facility] Discharge Comments: Appointment with [facility] (Rosalina or Faviola) Next week for wound check.
--- NOTE | 2025-07-25 16:37 | PC.NURSE ---
Discharge Note 258 Patient was cooperative throughout shift. VSS. Afebrile. A&Ox4. Independent. Surgical site dry and intact. Nicotine patch removed. Discharged 1503 picked up by cab.
== END 2025-07-25 15:03 | disposition home or self-care (01) | DRG 553 ==
LOC: ED 18:46 → MEDSURG 19:44
PROVIDERS: Family Medicine; Orthopaedic Surgery; Physician Assistant; Admitting Provider Family Medicine; Emergency Provider Family Medicine; Visit Provider Family Medicine
PROC: 3E1U48X Irrigation of Joints using Irrigating Substance, Percutaneous Endoscopic Approach, Diagnostic (ICD-10-PCS; principal; 2025-07-23 08:00)
DX: M11.821 Other specified crystal arthropathies, right elbow (principal); A41.9 Sepsis, unspecified organism; I48.92 Unspecified atrial flutter; E87.1 Hypo-osmolality and hyponatremia; J44.9 Chronic obstructive pulmonary disease, unspecified; K21.9 Gastro-esophageal reflux disease without esophagitis; F31.9 Bipolar disorder, unspecified; I12.9 Hypertensive chronic kidney disease with stage 1 through stage 4 chronic kidney disease, or unspecified chronic kidney disease; N18.31 Chronic kidney disease, stage 3a; E87.5 Hyperkalemia; M19.011 Primary osteoarthritis, right shoulder; Z79.899 Other long term (current) drug therapy; K59.00 Constipation, unspecified; R06.00 Dyspnea, unspecified
CPT/HCPCS: 01710; 36415; 71045; 71046; 80048; 80076; 82803; 83605; 83880; 84145; 85025; 85027; 85610; 85730; 86140; 87040; 87070; 87075; 87081; 87205; 87631; 89051; 89060; 93005; 93306; 94761; 99100; 99140; 99284; 99285; 99291; A9270; J0330; J0690; J1100; J1171; J1938; J2270; J2405; J2543; J2704; J3010; J3375; J3490; J7030; J7120; S4990

== ENCOUNTER 2025-07-31 13:51 | Outpatient (CLI) | payer MEDICARE, SELFPAY | END 2025-07-31 13:52 | disposition home or self-care (01) | LOC: FRMREF 13:52 | PROVIDERS: Visit Provider Family Medicine | DX: Z00.00 Encounter for general adult medical examination without abnormal findings (principal); A41.9 Sepsis, unspecified organism | CPT/HCPCS: 80053; 86140 ==